=== PATIENT | male | born 1995 | race Caucasian/White ===

== ENCOUNTER 2021-11-08 14:08 | Emergency (ER) | payer BC, SELFPAY ==
[2021-11-08 14:13] VITALS: PULSE 98; RESP 16; TEMP 38.2; O2SAT 99
--- NOTE | 2021-11-08 14:19 | ED.URI ---
HPI - URI/Sore Throat General Chief Complaint: Upper Respiratory Infection Stated Complaint: sore throat Time Seen by Provider: 11/08/21 14:19 Source: patient and RN notes reviewed History of Present Illness HPI Narrative: Patient is a 26-year-old male who presents the urgent care with complaints of a sore throat that started last night. Patient states he took a COVID test this morning which was negative. Denies of any known ill exposures. States that no one else in his home has been sick. Patient denies of any fever, nausea, vomiting or other upper respiratory complaints. Patient has not used anything [id number] for his symptoms. No other acute complaints. No acute distress noted. Patient aware of the plan of care. Some parts of this dictation were generated by voice recognition software and may contain typographical and/or grammatical inaccuracies. Related Data Home Medications Medication Instructions Recorded Confirmed famotidine 40 mg tablet 40 mg PO DAILY 11/08/21 11/08/21 Allergies Allergy/AdvReac Type Severity Reaction Status Date / Time No Known Allergies Allergy Unverified 11/08/21 14:18 Review of Systems Review of Systems: CONSTITUTIONAL: Denies fever, chills, or sweats. EYES: Denies visual changes, redness, or discharge. ENT: Denies rhinorrhea, congestion, or otalgia. Reports of sore throat CARDIOVASCULAR: Denies chest pain, palpitations, or edema. RESPIRATORY: Denies cough or dyspnea. GASTROINTESTINAL: Denies abdominal pain, nausea, vomiting, or diarrhea. GENITOURINARY: Denies dysuria or hematuria. SKIN: Denies rash or itching. MUSCULOSKELETAL: Denies back pain, joint pain, or myalgia. NEUROLOGIC: Denies headache, numbness, or weakness. All other systems reviewed are negative, except as documented in HPI. PMFSH Comments At the time of my signature, I reviewed and agree with the nursing past medical, surgical, social, and family history. There is no relevant family history pertinent to the patient complaint. Exam Narrative: GENERAL: This is a well-nourished, well-developed patient, in no apparent distress. HEAD: normocephalic, atraumatic. EYES: PERRL. Sclera clear/white. Vision is grossly intact. EARS: External ears normal, auditory canals clear and without drainage, TMs normal without perforation. Hearing grossly intact. NOSE: External nose normal with no obvious nasal discharge, nares without redness, no rhinorrhea. THROAT: Mucous membranes moist, posterior pharynx clear. Mild postnasal drainage NECK: Neck supple, non-tender without lymphadenopathy CARDIOVASCULAR: Regular rate and rhythm without murmurs, gallops, or rubs. RESPIRATORY: Clear to auscultation. Breath sounds equal bilaterally. No wheezes, rales, or rhonchi. SKIN: warm, intact with no suspicious lesions or rash, good texture and turgor. NEURO: awake, alert, and oriented to person, place and time. There were no obvious focal neurologic abnormalities. EXTREMITIES: No clubbing, cyanosis, or edema. Course Course Level of Care: Express Care Visit Vital Signs Vital signs: Vital Signs Temperature 100.8 F H 11/08/21 14:13 Pulse Rate 98 11/08/21 14:13 Respiratory Rate 16 11/08/21 14:13 Pulse Oximetry 99 11/08/21 14:13 Oxygen Delivery Room Air 11/08/21 14:13 Temperature 100.8 F H 11/08/21 14:13 Pulse Rate 98 11/08/21 14:13 Respiratory Rate 16 11/08/21 14:13 Pulse Oximetry 99 11/08/21 14:13 Oxygen Delivery Room Air 11/08/21 14:13 Reviewed MDM - URI/Sore Throat MDM Narrative Medical decision making narrative: Reviewed lab results with the patient. He is aware that strep swab was negative. Educated patient on culture we will call within 72 hours if culture is positive and antibiotics are necessary. If strep remains negative on culture and your symptoms progress?would advise taking a COVID test. Advised patient to use Tylenol/ibuprofen as needed. Use a daily antihistamine such as Zyrtec o
== END 2021-11-08 14:45 | disposition home or self-care (01) ==
PROVIDERS: Emergency Provider Nurse Practitioner Family
DX: J02.9 Acute pharyngitis, unspecified (principal)
CPT/HCPCS: 87081; 87880; 99213; G0463

== ENCOUNTER 2022-06-08 19:19 | Emergency (ER) | payer OTHER, SELFPAY ==
--- NOTE | ~2022-06-08 | XR_ITS ---
EXAMINATION: XR chest 2V DATE: 06/08/2022 20:05 INDICATION: Left chest pain. TECHNIQUE: Frontal and lateral views of the chest were obtained on 3 radiographs. COMPARISON: None. FINDINGS: There is no pneumonia, pleural effusion, or pneumothorax. The heart size is normal. IMPRESSION: 1. No acute cardiopulmonary disease. Reviewed, dictated and finalized at location A. CTOR OF AUDIOLOGY
[2022-06-08 19:21] VITALS: BP 144/91; PULSE 99; RESP 18; TEMP 36.8; O2SAT 100
--- NOTE | 2022-06-08 19:21 | ECG_ITS ---
Measurements Intervals [place] Rate: 100 P: 77 IN: 112 QRS: 78 QRSD: 102 T: 61 QT: 338 QTc: 436 Interpretive Statements SINUS TACHYCARDIA WITH SHORT IN INTERVAL BORDERLINE ECG NO PREVIOUS ECG AVAILABLE FOR COMPARISON Electronically Signed On 06-08-2022 19:58:34 CLERICAL ADMINISTRATIVE ASSISTANT by Jama Chappell D.O.
--- NOTE | 2022-06-08 19:30 | ED.ARRPALP ---
HPI - Arrhythmia/Palpitations General Chief Complaint: Arrhythmia/Palpitations Stated Complaint: fever Time Seen by Provider: 06/08/22 19:23 History of Present Illness HPI narrative: 27-year-old male presents to the emergency room for evaluation of chest pain that he has had since September. Patient states that he has been to multiple emergency rooms and is followed up with a health and wellness manager. States has completed an echo and a treadmill test, stating they were all normal. Patient continues to have palpitations and times of irregular fast heartbeat. Patient states the reason why he came today is because he had a fever, of 99.8. Related Data Home Medications Medication Instructions Recorded Confirmed famotidine 40 mg tablet 40 mg PO DAILY 11/08/21 11/08/21 Allergies Allergy/AdvReac Type Severity Reaction Status Date / Time No Known Allergies Allergy Unverified 11/08/21 14:18 Review of Systems Review of Systems: CONSTITUTIONAL: Denies fever, chills, or sweats. EYES: Denies visual changes, redness, or discharge. ENT: Denies rhinorrhea, congestion, sore throat, or otalgia. CARDIOVASCULAR: Reports chest pain, palpitations RESPIRATORY: Denies cough or dyspnea. GASTROINTESTINAL: Denies abdominal pain, nausea, vomiting, or diarrhea. GENITOURINARY: Denies dysuria or hematuria. SKIN: Denies rash or itching. MUSCULOSKELETAL: Denies back pain, joint pain, or myalgia. NEUROLOGIC: Denies headache, numbness, dizziness, or weakness. PSYCHIATRIC: Denies anxiety or depression. Exam Narrative: GENERAL: Well-appearing, well-nourished, no physical limitations, and in no acute distress. HEAD: Normocephalic, atraumatic. EYES: Conjunctivae normal, PERRLA and EOMI. CHEST: Clear to auscultation. No respiratory distress. No wheezes rales or rhonchi. HEART: Regular rate and rhythm. No murmur heard. Normal peripheral pulses. EXTREMITIES: Normal range of motion. No edema. No clubbing or cyanosis SKIN: Warm, dry, no rash. No noted wounds NEURO: No focal deficits. Alert and oriented x3. MAEW. CN's II-XI intact bilaterally, normal gait PSYCH: Cooperative. Normal mood and affect. Course Vital Signs Vital signs: Vital Signs Temperature 36.8 C 06/08/22 19:21 Pulse Rate 99 01/17/23 19:21 Respiratory Rate 18 06/08/22 19:21 Blood Pressure 144/91 H 06/08/22 19:21 Pulse Oximetry 100 06/08/22 19:21 Oxygen Delivery Room Air 06/08/22 19:21 Temperature 36.8 C 06/08/22 19:21 Pulse Rate 99 06/08/22 19:21 Respiratory Rate 18 06/08/22 19:21 Blood Pressure 144/91 H 06/08/22 19:21 Pulse Oximetry 100 06/08/22 19:21 Oxygen Delivery Room Air 06/08/22 19:21 MDM - Arrhythmia/Palpitations Lab Data 06/08/22 19:36 06/08/22 19:36 Labs: Lab Results 06/08/22 06/08/22 06/08/22 Range/Units 19:36 19:36 19:36 WBC 4.8 (4.5-10.0) K/mm3 RBC 5.34 (4.6-6.20) M/mm3 Hgb 15.7 (14.0-18.0) g/dL Hct 45.1 (42.0-52.0) % MCV 84.5 (80-100) fl MCH 29.4 (26-34) pg MCHC 34.8 (32-36) g/dl RDW 12.3 (11.5-14.5) % Plt Count 243 (150-375) k/mm3 MPV 10.7 H (7.4-10.4) fl Immature Gran % (Auto) 0.2 (0-0.5) % Neut % (Auto) 57.0 (45.5-73.1) % Lymph % (Auto) 33.8 (18.3-44.2) % [place] % (Auto) 6.1 (2.6-8.5) % Eos % (Auto) 2.1 (0-4.4) % Baso % (Auto) 0.8 (0.2-1.2) % Lymph # (Auto) 1.61 (0.9-3.2) K/mm3 [place] # (Auto) 0.3 (0.1-0.6) K/mm3 Eos # (Auto) 0.1 (0-0.3) K/mm3 Baso # (Auto) 0.0 (0.0-0.1) K/mm3 Abs Immat Gran (auto) 0.01 (0.00-0.031) K/mm3 Absolute Neuts (auto) 2.7 (1.3-6.7) K/mm3 Absolute Nucleated RBC 0.0 (0.0-0.012) K/mm3 Nucleated RBC % 0.0 (0.0-0.2) % D-Dimer 0.31 (<0.48) ug/mL Sodium 139 (137-145) mmol/L Potassium 3.7 (3.4-5.0) mmol/L Chloride 100 (98-107) mmol/L Carbon Dioxide 30 (22-30) mmol/L Anion Gap 9 (8-16) mmol/L BUN 17 (9-20) mg/dL Creatinine 0
[2022-06-08 19:45] LABS: Basophils Percent Auto 0.8 % (0.2-1.2); Eosinophils Absolute Auto 0.1 K/mm3 (0-0.3); Eosinophils Percent Auto 2.1 % (0-4.4); Hematocrit 45.1 % (42.0-52.0); Hemoglobin 15.7 g/dL (14.0-18.0); Immature Granulocyte Absolute 0.01 K/mm3 (0.00-0.031); Immature Granulocyte Percent A 0.2 % (0-0.5); Lymphocytes Absolute Auto 1.61 K/mm3 (0.9-3.2); Lymphocytes Percent Auto 33.8 % (18.3-44.2); Mean Corpuscular HGB Conc 34.8 g/dl (32-36); Mean Corpuscular Hemoglobin 29.4 pg (26-34); Mean Corpuscular Volume 84.5 fl (80-100); Mean Platelet Volume 10.7 fl (7.4-10.4); Monocytes Absolute Auto 0.3 K/mm3 (0.1-0.6); Monocytes Percent Auto 6.1 % (2.6-8.5); Neutrophils Absolute Auto 2.7 K/mm3 (1.3-6.7); Platelet Count Result 243 k/mm3 (150-375); Red Blood Count 5.34 M/mm3 (4.6-6.20); Red Cell Distribution Width 12.3 % (11.5-14.5); White Blood Count 4.8 K/mm3 (4.5-10.0)
[2022-06-08 19:53] LABS: Alanine Aminotransferase 57 U/L (6-50); Albumin Level 5.1 g/dL (3.5-5.1); Alkaline Phosphatase 51 U/L (38-126); Anion Gap 9 mmol/L (8-16); Aspartate Amino Transferase 36 U/L (17-59); Bilirubin,Total 0.4 mg/dL (0.2-1.3); Blood Urea Nitrogen 17 mg/dL (9-20); Calcium 9.2 mg/dL (8.4-10.2); Carbon Dioxide 30 mmol/L (22-30); Chloride 100 mmol/L (98-107); Estimated CRCL calculation 116 ml/min; Estimated Glomerular Filt Rate > 60; Glucose 110 mg/dL (65-110); Potassium 3.7 mmol/L (3.4-5.0); Sodium 139 mmol/L (137-145)
[2022-06-08 20:00] VITALS: BP 147/72; PULSE 88; RESP 15; O2SAT 100
[2022-06-08 20:00] LABS: D Dimer 0.31 ug/mL (<0.48)
[2022-06-08 20:05] LABS: Troponin I < 0.012 ng/mL (0.000-0.034)
[2022-06-08 21:18] VITALS: BP 131/67; PULSE 83; RESP 18; O2SAT 98
== END 2022-06-08 21:19 | disposition home or self-care (01) ==
LOC: ANHED 20:55
PROVIDERS: Emergency Provider Nurse Practitioner Family; PCP Internal Medicine Geriatric Medicine
DX: R00.2 Palpitations (principal); R00.0 Tachycardia, unspecified
CPT/HCPCS: 36415; 71046; 80053; 84443; 84484; 85025; 85380; 93005; 99284

== ENCOUNTER 2023-05-30 16:50 | Emergency (ER) | payer OTHER, SELFPAY ==
[2023-05-30 17:00] VITALS: BP 132/84; PULSE 85; RESP 16; TEMP 36.6; O2SAT 99
--- NOTE | 2023-05-30 17:11 | ED.SKABFB ---
HPI - Skin/Abscess/Foreign Bdy General Chief complaint: Skin/Abscess/Foreign Body Stated complaint: spot on left side of face Time Seen by Provider: 05/30/23 17:11 Source: patient Mode of arrival: ambulatory Limitations: no limitations History of Present Illness HPI narrative: 28-year-old male presents with complaint of redness, tenderness, swelling and itching to left side of face. Patient reports last week he woke up with a full to left side of face. States had white had any popped it. Past few days he has had increased redness swelling, states little red bumps underneath the left eye and to left upper eyelid. No drainage. All systems reviewed and negative except as noted above. Related Data Home Medications Medication Instructions Recorded Confirmed sertraline 25 mg tablet 25 mg PO DAILY 05/30/23 05/30/23 Allergies Allergy/AdvReac Type Severity Reaction Status Date / Time No Known Allergies Allergy Unverified 05/30/23 17:03 Review of Systems Review of Systems: CONSTITUTIONAL: Denies fever, chills, or sweats. EYES: Denies visual changes, redness, or discharge. ENT: Denies rhinorrhea, congestion, sore throat, or otalgia. CARDIOVASCULAR: Denies chest pain, palpitations, or edema. RESPIRATORY: Denies cough or dyspnea. GASTROINTESTINAL: Denies abdominal pain, nausea, vomiting, or diarrhea. GENITOURINARY: Denies dysuria or hematuria. SKIN: Reports redness, rash to left side of face with itching and tenderness. MUSCULOSKELETAL: Denies back pain, joint pain, or myalgia. NEUROLOGIC: Denies headache, numbness, or weakness. PSYCHIATRIC: Denies anxiety or depression. All other systems reviewed are negative, except as documented in HPI. PMFSH Comments At time of signature, agree with nursing past medical, surgical, social and family history. There is no relevant family history pertinent to the presenting complaint. Exam Narrative: GENERAL: This is a well-nourished, well-developed patient, in no apparent distress. HEAD: normocephalic, atraumatic. EYES: PERRL. Sclera clear/white. Vision is grossly intact. EARS: External ears normal NOSE: External nose normal NECK: Neck supple, non-tender without lymphadenopathy, masses or thyromegaly. CARDIOVASCULAR: Regular rate and rhythm without murmurs, gallops, or rubs. RESPIRATORY: Clear to auscultation. Breath sounds equal bilaterally. No wheezes, rales, or rhonchi. SKIN: warm, Dry, intact with no suspicious lesions, good texture and turgor. erythematous, swollen area to L side of face, cheekbone, approx. 3cm diameter. tender on palpation. erythematous fine papular rash extending from red lesion under L eye and L upper eyelid. NEURO: awake, alert, and oriented to person, place and time. There were no obvious focal neurologic abnormalities. EXTREMITIES: No joint tenderness, effusion, or edema noted. Course Course Level of Care: Express Care Visit Vital Signs Vital signs: Vital Signs Temperature 36.6 C 05/30/23 17:00 Pulse Rate 85 05/30/23 17:00 Respiratory Rate 16 05/30/23 17:00 Blood Pressure 132/84 05/30/23 17:00 Pulse Oximetry 99 05/30/23 17:00 Oxygen Delivery Room Air 05/30/23 17:00 Temperature 36.6 C 05/30/23 17:00 Pulse Rate 85 05/30/23 17:00 Respiratory Rate 16 05/30/23 17:00 Blood Pressure 132/84 05/30/23 17:00 Pulse Oximetry 99 05/30/23 17:00 Oxygen Delivery Room Air 05/30/23 17:00 reviewed MDM - Skin/Abscess/Foreign Bdy MDM Narrative Medical decision making narrative: will treat for cellulitis with cephalexin. Will prescribe steroid for rash for possible dermatitis versus allergic reaction. Patient denies use of any new products. Patient is aware of diagnosis, understands and agrees to treatment plan. Anticipatory guidance given. Patient agrees to follow-up as directed and is aware of reasons to seek care at the emergency department. Portions of this record may have been created wit
== END 2023-05-30 17:25 | disposition home or self-care (01) ==
PROVIDERS: Emergency Provider Nurse Practitioner Family; PCP Internal Medicine Geriatric Medicine
DX: L03.211 Cellulitis of face (principal); L30.9 Dermatitis, unspecified
CPT/HCPCS: 99213; G0463